=== PATIENT | female | born 1965 | race African-American/Black ===

== ENCOUNTER 2018-04-16 05:41 | Day surgery (SDC) | payer OTHER ==
[~2018-04-16] VITALS: Ht 175.3 cm; Wt 79.4 kg
[2018-04-16] MEDS ORDERED: LACTATED RINGERS 1,000 ML IV SCH (06:15)
[2018-04-16] MEDS ORDERED: NORMAL SALINE 0.9% 10 ML SYR ONE (06:56)
[2018-04-16] MEDS ORDERED: BACITRACIN 15GM TUBE TOP ONE (06:56)
[2018-04-16] MEDS ORDERED: BUPIVACAINE/EPINEPH/PF 0.25%/0.0005 10ML ONE (06:56)
[2018-04-16] MEDS ORDERED: BACITRACIN 50,000 UNITS/VIAL ONE (06:56)
[2018-04-16] MEDS ORDERED: SKIN ADHESIVE 0.7 GM EA TOP ONE (06:57)
[2018-04-16] MEDS ORDERED: FENTANYL CITRATE/PF 50MCG/ML 2ML VIAL ONE (07:01)
[2018-04-16] MEDS ORDERED: MIDAZOLAM HCL 2 MG/2 ML VIAL ONE (07:01)
[2018-04-16] MEDS ORDERED: PROPOFOL 200MG/20ML VIAL IV ONE ×2 (07:01→07:34)
[2018-04-16] MEDS ORDERED: ROCURONIUM BROMIDE 10MG/ML VIAL 5ML IV ONE (07:02)
[2018-04-16] MEDS ORDERED: LIDOCAINE HCL/PF 1% 10 MG/ML 5ML VIAL ONE (07:02)
[2018-04-16] MEDS ORDERED: CEFAZOLIN SODIUM 1000MG/VIAL ONE (07:22)
[2018-04-16] MEDS ORDERED: BUPIVACAINE HCL/EPINEPHRINE 0.5%/0.0005 30ML ONE (07:31)
[2018-04-16] MEDS ORDERED: HYDROCORTISONE SOD SUCCINATE 100 MG/2 ML VIAL ONE (07:44)
[2018-04-16] MEDS ORDERED: ONDANSETRON HCL 4MG/2ML INJ ONE (07:44)
[2018-04-16] MEDS ORDERED: ATOR10TA69 PO (07:49)
[2018-04-16] MEDS ORDERED: AMLO2.5T45 PO (07:49)
[2018-04-16] MEDS ORDERED: ONDANSETRON HCL 4MG/2ML INJ IV PRN (08:00)
[2018-04-16] MEDS ORDERED: MORPHINE SULFATE 4 MG/ML CPJ (NOT FOR IM USE) IV PRN (08:00)
[2018-04-16] MEDS ORDERED: SODIUM CHLORIDE 0.9% 10ML VIAL ONE (08:04)
[2018-04-16] MEDS ORDERED: EPHEDRINE SULFATE 50MG/ML VIAL ONE (08:04)
[2018-04-16] MEDS ORDERED: HYDROCODONE/ACETAMINOPHEN 5/325MG TABLET PO PRN (09:30)
[2018-04-16 09:45] VITALS: BP 120/50
== END 2018-04-16 10:50 | disposition home or self-care (01) ==
LOC: OR 05:41
PROVIDERS: ATTEND Surgery
DX: E04.9 Nontoxic goiter, unspecified (principal); I10 Essential (primary) hypertension; E78.00 Pure hypercholesterolemia, unspecified; Z79.899 Other long term (current) drug therapy; Z98.890 Other specified postprocedural states; Z87.891 Personal history of nicotine dependence
CPT/HCPCS: 60220; 88309; 88331; A4216; J0171; J0690; J1720; J2250; J2270; J2405; J3010; J3490; J2704; J7040